=== PATIENT | female | born 1945 | race Caucasian/White ===

== ENCOUNTER → 2016-10-08 | Outpatient (CLI) | payer OTHER ==
[~2016-10-08] MED LIST: AMBEREN; PRILOSEC40 MG
== END ==
LOC: RAD 12:59
DX: N63 Unspecified lump in breast (principal); Z85.3 Personal history of malignant neoplasm of breast; E03.9 Hypothyroidism, unspecified

== ENCOUNTER → 2016-10-12 | Outpatient (CLI) | payer OTHER ==
--- NOTE | ~2016-10-12 | S ---
[facility] [place] [address] SURGICAL PATH RPT PROCEDURE Name: HUAN CHILDRESS Room #: REG [facility].#: [id number] Admission: 10/12/16 Date of : 45 Discharge: Report #: [id number] Path Case #: [id number] PATHOLOGY REPORT COLLECTION DATE: 10/12/2016 RECEIVED DATE: 10/12/2016 SUBMITTING PHYS: Dr. Win Saleh OTHER PHYS: Dr. Bang Alva ADDENDUM REPORT (Order Date: 10/27/2016 12:15) ADDENDUM COMMENT: This addendum is issued subsequent to reviewing the breast prognostic markers wherein the malignancy is ER, OH, as well as HER-2/albert negative (triple negative) and due to its poorly differentiated morphology. Immunohistochemical stain AE1-/AE3 performed on block A1- strong membranous reactivity present. Findings support the original diagnosis rendered of invasive mammary carcinoma with prominent lobular features. The originally rendered diagnosis remains unchanged. Professional services performed by [facility] at [place] [facility] [address] [place] [address] Technical services performed by [facility] at [address] [place] [address], [address] [place] [address]. ELECTRONICALLY SIGNED BY: Tawana Alberto M.D. DATE/TIME:10/27/2016 16:07 SPECIMEN(S) RECEIVED: A.Left breast 1:00 6 cm * * * * * * * * * * * * FINAL DIAGNOSIS: "Left breast 1:00 6 cm", imaged-guided needle biopsy: - INVASIVE MAMMARY CARCINOMA WITH PROMINENT LOBULAR FEATURES, INVOLVING MULTIPLE CORES, MEASURING 1.2 CM ON THE SLIDE. (See comment). COMMENT: Specimen type: Image-guided needle biopsy Tumor site: Left breast 1:00 6 cm Tumor quantitation: Involving multiple cores, longest contiguous focus measuring 1.2 cm on the slide [address] [address] SURGICAL PATH RPT PROCEDURE Name: MONROEHUAN Sal Room #: REG [facility]#: [id number] Admission: 10/12/16 Date of : 45 Discharge: Report #: [id number] Path Case #: [id number] Histologic type: Invasive mammary carcinoma with prominent lobular features Histologic grade: Grade III, poorly differentiated Tubules, nuclei and mitoses: Tubules score-3, nuclei score-2, mitoses score-3 LVSI: Indeterminant Microcalcifications: Not identified Markers: ER, OH, HER2 and Ki-67 pending Block: A1 Stores Assistant slides are co-reviewed with Dr. Tawana Alberto. The case is discussed with Cheryl in the [facility] on 10/13/2016 at approximately 10:40 AM. PATHOLOGIST: Marysol Alcantar M.D. REPORT ELECTRONICALLY SIGNED BY: Marysol Alcantar M.D. DATE/TIME: 10/13/2016 16:22 * * * * * * * * * * * * GROSS PATHOLOGY: Received in formalin labeled "Huan Childress, left breast 1:00 6 cm," are multiple needle cores of yellow-ang[place] fibrofatty tissue measuring 1.6 x 1.0 x 0.2 cm in aggregate dimensions. The tissue is submitted in its entirety in cassette A1. The cold ischemic time is less than 1 minute. The total formalin fixation time is 12 hours and 5 minutes. (CAA; 10/12/2016) CLINICAL HISTORY: Left breast mass INITIAL CPT CODE(S): A; 14598, 81440(4), 78747 Professional services performed by [facility] at [address], [place] [address] Technical services performed by [facility] at [address] [place] [address], [place] [address]. PROCEDURE REPORT (Order Date: 10/18/2016 00:00) COMMENT: Quantitative image analysis was performed on block A1. Please see next page for scanned image of results. PATHOLOGIST: Alex Buckley M.D. REPORT ELECTRONICALLY SIGNED BY: Alex Buckley M.D. [facility] [address] [place] [address] SURGICAL PATH RPT PROCEDURE Name: HUAN CHILDRESS Room #: REG [facility] [id number] Admission: 10/12/16 Date of : 45 Discharge: Report #: [id number] Path Case #: [id number] DATE/TIME: 10/20/2016 12:14 [facility] [address] [address] PHONE: [phone] DIRECTOR: Pawan Ulrich M.D. * * * END OF REPORT * * *
== END | disposition home or self-care (01) ==
LOC: ULTRA 08:24
DX: C50.912 Malignant neoplasm of unspecified site of left female breast (principal)